=== PATIENT | female | born 1930 | race Caucasian/White ===

== ENCOUNTER 2016-12-17 21:29 | Inpatient (IN) | payer MEDICARE ==
--- NOTE | ~2016-12-17 | EKG ---
PATIENT: ALVIN SAWYER UNIT #: [id number] Ventricular Rate: 98 BPM Atrial Rate: 98 BPM P-R Interval: 174 ms QRS Duration: 90 ms Q-T Interval: 352 ms QTC Calculation(Bezet): 449 ms P Acme: 61 degrees Calculated R Acme: 40 degrees Calculated T Acme: -19 degrees Diagnosis Line: Normal sinus rhythm Diagnosis Line: Inferior infarct (cited on or before 17-DEC-2016) Diagnosis Line: Abnormal ECG Baseline wander Nonspecific ST Diagnosis Line: abnormality Diagnosis Line: When compared with ECG of 17-DEC-2016 21:10, Diagnosis Line: (unconfirmed) Diagnosis Line: No significant change was found Diagnosis Line: Confirmed by GENARO PETERS MD ([id number]) on 12/21/2016 Diagnosis Line: 10:41:56 PM INTERPRETING MD: FRAN BECKFORD
--- NOTE | ~2016-12-17 | HP ---
Unit #: [id number] #: [id number] Patient: ALVIN SAWYER [id number] [address] [place], [place] [address] [id number] I MR#: [id number] NAME: ALVIN SAWYER ROOM: [facility] Age: 86 Sex: F Admission Date: 12/17/2016 : 1930 Attending Physician: Judi Poe M.D. Primary Care Physician: No Primary Care Physician HISTORY AND PHYSICAL CHIEF COMPLAINT Back pain, hyponatremia. HISTORY This 86-year-old female with history of GERD was brought in by EMS. Apparently, patient lives in some sort of dwelling. I am told it is a trailer, but the patient makes mention that lives with her daughter's friend. Neighbors became concerned and called EMS. EMS found the patient in her dwelling, which was filthy with feces. She was brought to this emergency department where she is a fairly poor historian. She tells me that she was living with her daughter who now is in correction and that she is living with her daughter's friend, but cannot go back to that situation and is unable to live on her own. She has chronic shortness of breath and chronic back pain with CT scan findings consistent with old compression fractures. I asked her what changed today and she tells me she called EMS as she was unable to get out of bed. She does seem to be a bit confused. In the course of her evaluation, she has a sodium of 127. CT scans were performed suspicious for 1.4 cm left inner upper breast mass, which I can palpate on exam. In the ER, she was given Tylenol and a liter of saline. Unfortunately, no family or friends are present. PAST MEDICAL HISTORY 1. GERD. 2. ORIF left ankle fracture. 3. Varicose vein stripping. ALLERGIES None. HOME MEDICATIONS Rolaids, which apparently are not helpful. Patient tells me she was on a little purple pill, which helped much better. FAMILY HISTORY Noncontributory given patient's age. SOCIAL HISTORY The patient is a lifelong nonsmoker and does not drink alcohol. I am confused whether she lives in a trailer with a friend or a friend's home. Her daughter, patient states that her daughter just got out of correction recently and is in a [place]. Patient states that she is not able to live on her own. REVIEW OF SYSTEMS Unit #: [id number] #: [id number] Patient: ALVIN SAWYER Impossible to obtain as patient herself is a poor historian. PHYSICAL EXAMINATION GENERAL APPEARANCE: Pleasant, 86-year-old female. Tends to become quite tangential. VITAL SIGNS: Temperature 98.1, pulse 109, respirations 18, blood pressure 187/93, and O2 saturation 100% on room air. HEENT: Eyes: PERRLA. Extraocular muscles are intact. Pharynx: Benign. NECK: Supple without adenopathy or thyromegaly. CHEST: Clear. CARDIAC: Normal S1 and S2 without murmur. BREASTS: I can palpate a mass in the left upper inner breast. ABDOMEN: Bowels sounds are present. No hepatosplenomegaly, tenderness, or masses. EXTREMITIES: Without C, C, or E. Pedal pulses are present. NEUROLOGIC: Patient is awake and alert, but she is only oriented to person. Her cranial nerves are intact. She has equal strength throughout. DIAGNOSTIC STUDIES LABORATORY: Admission labs: Hematocrit 34.7 and normal white count, platelet count, and MCV. D-dimer elevated. SMA-12: Sodium 127, glucose 124, and chloride is 93. Cardiac markers are negative. IMAGING: CTA of the chest negative for PE. Chronic compression fractures noted. Possible left breast nodule, 1.4 cm, noted. Gallstones. Aortic ectasia. Atherosclerotic calcifications, COPD, and bronchiectasis. CARDIOVASCULAR: EKG: Normal sinus rhythm. Rate 99 with Q noted III and aVF. ASSESSMENT 1. Patient is unable to go back to her usual living situation. I am told when EMS arrived, there was feces and the living situation was quite filthy. 2. Likely mild dementia. 3. Hyponatremia. 4. Chronic back pain with multiple old compression fractures. 5. Left breast mass on CT scan and on exam. 6. Elevated blood pressure. PLANS 1. IV saline, check thyroid function test, and check B12 level and urine sodium. 2. Social work and physical therapy to see. 3. Ultrasound of the left breast and biopsy if mass is present. 4. Blood pressure control. 5. Obtain old records. 6. Will write for a proton pump inhibitor. Dictated by Judi Poe M.D. JES/pc TD: 12/18/2016 05:00 JOB #: [id number] Unit #: [id number] #: [id number] Patient: SILVERIOALVIN HISTORY AND PHYSICAL Page 1 of 1 X Judi Poe MD X HISTORY AND PHYSICAL
--- NOTE | ~2016-12-17 | DS ---
Unit #: [id number] #: [id number] Patient: ALVIN SAWYER [id number] [address] [address] [id number] I MR#: [id number] NAME: ALVIN SAWYER ROOM: 227 Age: 86 Sex: F Admission Date: 12/17/2016 : 1930 Discharge Date: 12/21/2016 Attending Physician: Ирина Love M.D. DISCHARGE SUMMARY PRIMARY CARE PROVIDER None. PRINCIPAL DIAGNOSES 1. Hyponatremia secondary to syndrome of inappropriate antidiuretic hormone secretion. 2. 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 3. Hypertensive urgency. 4. Severe vitamin B12 deficiency with a vitamin B12 level of 185. 5. 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 6. Osteoporosis. 7. Hard of hearing. 8. Mild deconditioning. 9. Gastroesophageal reflux disease. 10. Chronic obstructive pulmonary disease. CONSULTANTS Dr. Sexton, Oncology. PROCEDURES 1. Chest x-ray on 12/17/2016 with calcified granuloma in the right apex of the lung. 2. CT angiogram of the chest on 12/17/2016, which was negative for pulmonary embolism. Ectatic ascending aorta and distal aortic arch measuring 3.5 cm. Atherosclerotic calcifications noted. Emphysema and bronchiectasis noted. 1.4 cm nodule in the upper inner quadrant of left breast. Chronic appearing compression deformities at T8 and T12. CLINICAL HISTORY AND HOSPITAL COURSE Ms. Ruiz is an 86-year-old female, who presents to the emergency department for complaints of back pain. In the emergency department, she was found to be hyponatremic with a sodium level of 127. She was also complaining of shortness of breath and underwent chest x-ray and CT angiogram of the chest. CT angiogram of the chest revealed a 1.4 cm mass of the left breast. For the above reasons, the patient was subsequently admitted. Regards the patient's hyponatremia, she was placed on IV fluids. Sodium throughout the week has remained stable at approximately 129. 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 Regards to the patient's breast mass, Dr. Sexton was consulted. Unit #: [id number] #: [id number] Patient: ALVIN SAWYER Unfortunately, the patient is unable to have mammogram and biopsy as an inpatient and she will follow up with Dr. Sexton as an outpatient for further evaluation of this breast mass, is a real possibility this is underlying malignancy. Upon presentation, the patient was also found to have an elevated blood pressure into the 170s/90s. She has been placed on Norvasc and blood pressures remained stable. The patient also has underlying memory loss. Vitamin B12 level was done and found to be significantly low. She received intramuscular injections while hospitalized and will be discharged home on pills and this will need to be followed up within the next 3 months. She may require intermittent monthly injections in her primary care physician's office. They are concerned about the patient being unable to care for herself. This was discussed with the patient's grandson, Mauro and the plan is for the patient to be discharged back to her friend's house and will ultimately live with her daughter and her grandson. DISCHARGE CONDITION Stable. DISCHARGE STATUS Discharged to home. DISCHARGE MEDICATIONS Tramadol 50 mg one p.o. q.6 hours p.r.n. for pain; Norvasc 10 mg daily; Prilosec 20 mg daily; vitamin B12 1000 mcg p.o. daily, this can be purchased over the counter. DISCHARGE INSTRUCTIONS The patient was instructed to follow a regular diet, thus she should maintain a 1500 mL fluid restriction. She can increase her activity as tolerated under of care of physical and occupational therapy via home health. DISCHARGE FOLLOWUP The patient will follow up with Dr. Sexton in 2 weeks. Needs outpatient mammogram, ultrasound, and biopsy of this mass. She will follow up with her primary care provider in approximately 2 weeks. Can recheck sodium level at that time 129 is acceptable. Dictated by... Ирина Love M.D. SEEMA/felicia TD: 12/22/2016 01:12 JOB #: [id number] Unit #: [id number] #: [id number] Patient: ALVIN SAWYER DISCHARGE SUMMARY Page 1 of 1 X Ирина Love MD X DISCHARGE SUMMARY
--- NOTE | ~2016-12-17 | CR72 ---
[facility] A Service of [facility] & [facility] RADIOLOGY TEXT RESULTS PATIENT: ALVIN SAWYER LOCATION: B 450-01 : [birth year] UNIT #: [id number] AGE: [address]: Ирина Love MD SEX: F ORDER DR: [id number] [facility] [address]. [place], [place] [address] [id number] I MR#: [id number] Acc #: [id number] NAME: ALVIN SAWYER : 1930 SEX: F STUDY DATE/TIME: 12/17/2016 21:07 UNIT: [facility] ROOM: [facility] STUDY DESCRIPTION: CR Chest Single View Portable Attending Physician: Judi Poe M.D. Ordering Physician: Atul Woodson M.D. Primary Care Physician: Primary Care Physician No MEDICAL IMAGING REPORT This report is preliminary unless electronic signature is present EXAM Portable chest x-ray 12/17/2016 HISTORY Short of air. Chest pain, dry cough began yesterday. FINDINGS AP radiograph of the chest is presented. No comparison chest radiographs. No acute-appearing bony abnormality. Degenerative changes in the bilateral shoulders and spine. Heart upper limits of normal in size. The lungs appear slightly hyperinflated which may be a reflection of underlying chronic airway disease. Calcified granuloma right apex. Right lung otherwise clear. Linear/band-like scarring or atelectasis left lung base. Calcified granuloma left lung base medially. Left lung otherwise clear. No pleural effusion or pneumothorax. Dictated by... Abhay Mccullough M.D. THIS IS AN ELECTRONICALLY VERIFIED REPORT Abhay Mccullough M.D. at 12/18/2016 8:05 PM GABRIEL/chepe TD: 12/18/2016 06:15 JOB #: [id number] MEDICAL IMAGING REPORT Page 1 of 1 COPY
--- NOTE | ~2016-12-17 | CT16 ---
[facility] A Service of [facility] & [facility] RADIOLOGY TEXT RESULTS PATIENT: ALVIN SAWYER LOCATION: C4B 450-01 : [birth year] UNIT #: [id number] AGE: [address]: Ирина Love MD SEX: F ORDER DR: [id number] [facility] [address] [place], [place] [address] [id number] I MR#: [id number] Acc #: [id number] NAME: ALVIN SAWYER : 1930 SEX: F STUDY DATE/TIME: 12/17/2016 21:45 UNIT: C4 ROOM: [facility] STUDY DESCRIPTION: CT Angio Chest for PE Attending Physician: Judi Poe M.D. Ordering Physician: Atul Woodson M.D. Primary Care Physician: Primary Care Physician No MEDICAL IMAGING REPORT This report is preliminary unless electronic signature is present EXAM CT angiography chest for PE HISTORY Upper back pain started this a.m. Short of air for 2 years. Dyspnea. Varicose veins. D-dimer 875. TECHNIQUE This CT examination was performed with one or more of the following radiation dose reduction techniques: automatic exposure control, adjustment of mA and/or kV according to patient size, and iterative reconstruction. FINDINGS CT pulmonary angiography performed with intravenous administration 80 mL Isovue-370. Three-dimensional reconstructions performed through pulmonary arteries. No prior CTs for comparison. Visualized thyroid unremarkable. No axillary adenopathy. No mediastinal or hilar adenopathy. Mild cardiac enlargement. Questionable 1.4 cm nodule medial left breast. This is a questionable finding and could simply be a reflection of asymmetric normal breast tissue. This is in the upper inner quadrant of the left breast. Correlation with mammography and clinical examination recommended. CT is not the accepted screening modality for evaluation of the breasts. No pleural effusions. The visualized liver is unremarkable. Partial visualization of gallbladder shows at least 1 nonobstructing gallstone. No biliary ductal dilatation. The spleen, pancreas, adrenal glands are unremarkable. Upper renal poles notable for focal areas of parenchymal thinning in the upper pole of the right kidney likely reflecting remote infection or vascular insult. Visualized kidneys show no acute appearing abnormality. There is no upper abdominal adenopathy. Small hiatal hernia. Remainder of visualized stomach, small bowel and colon unremarkable. [facility] A Service of [facility] RADIOLOGY TEXT RESULTS PATIENT: ALVIN SAWYER LOCATION: B 450-01 : [birth year] UNIT #: [id number] AGE: [address]: Ирина Love MD SEX: F ORDER DR: Pulmonary parenchyma shows underlying emphysema. Mild bronchiectasis without mucous plugging. No suspicious nodule. No indication of acute infectious or inflammatory disease. Linear atelectasis or scarring at the left lung base adjacent to diaphragm. Bony structures show severe compression deformity at the L1 vertebral body level. The appearance favors chronic time course. No paraspinal hematoma. There is smoothly contoured retropulsion of posterior cortex. There is mild central spinal canal narrowing. The spinal cord is not well visualized. Its termination is unclear. I cannot exclude possible anterior cord contact at this level. There is mild chronic-appearing compression deformity L2. There is moderate chronic-appearing compression deformity T8 vertebral body without posterior cortex retropulsion and no spinal canal narrowing. Multilevel intervertebral disc space narrowing. Degenerative changes in the bilateral shoulders, left greater than right. Levoscoliosis lower thoracic spine. No acute appearing fracture. No aggressive bony lesion. Pulmonary arteries well opacified. No PE. Ectatic ascending aorta measuring about 3.5 cm in diameter. The distal aortic arch is ectatic measuring about 3.5 cm in diameter. No dar aneurysm. The visualized aortic branch vessels appear patent. Scattered atherosclerotic arterial calcifications. IMPRESSION 1. No PE. 2. No dar aneurysmal dilatation of the aorta. Ectatic ascending aorta and distal aortic arch measuring up to about 3.5 cm in diameter. No dissection. Visualized branch vessels are patent. Scattered atherosclerotic arterial calcifications. 3. Emphysema. Bronchiectasis. No mucous plugging. There is no evidence of acute infectious or inflammatory disease. No pleural effusion, pneumothorax or suspicious nodule. Linear scarring or atelectasis at the extreme left lung base adjacent to diaphragm. 4. Mild cardiac enlargement. 5. Questionable 1.4 cm nodule upper inner quadrant left breast. See discussion above. Correlation with physical examination and mammography recommended. 6. Uncomplicated incompletely visualized cholelithiasis. 7. Focal areas of cortical thinning upper pole right kidney likely reflecting prior vascular insult or prior episodes of infection. 8. No acute-appearing bony abnormality is seen. Mild to moderate chronic-appearing compression deformities at T8 and L2 vertebral bodies. Marked chronic compression deformity, chronic in appearance, at L1. There is posterior cortex chronic-appearing retropulsion at the L1 level causing mild central spinal canal narrowing. Relationship to the spinal cord unclear. No aggressive-appearing bony abnormality. Dictated by... Abhay Mccullough M.D. [facility] A Service of [facility] RADIOLOGY TEXT RESULTS PATIENT: ALVIN SAWYER LOCATION: [place] [address] : [birth year] UNIT #: [id number] AGE: [address]: Ирина Love MD SEX: F ORDER DR: THIS IS AN ELECTRONICALLY VERIFIED REPORT Abhay Mccullough M.D. at 12/18/2016 8:05 PM GABRIEL/chepe TD: 12/18/2016 06:47 JOB #: [id number] MEDICAL IMAGING REPORT Page 1 of 1 COPY
--- NOTE | ~2016-12-17 | CO ---
Unit #: [id number] #: [id number] Patient: ALVIN SAWYER [id number] [address] [place], [place] [address] [id number] I MR#: [id number] NAME: ALVIN SAWYER ROOM: [facility] Age: 86 Sex: F Admission Date: 12/17/2016 : 1930 Attending Physician: Ирина Love M.D. Primary Care Physician: Primary Care Physician No Consultation Date: 12/18/2016 CONSULTATION REPORT REASON FOR EVALUATION Left-sided breast mass, please evaluate. HISTORY OF PRESENT ILLNESS This 86-year-old lady who is very pleasantly confused and is unable to give much of history, so majority of this was obtained from the chart but she stated that her daughter is in [facility] and she lives with a daughter's friend. It appears that is correct. She was brought in and CT scan of the chest showed a possible 1.4 cm left breast inner quadrant lesion. We are requested to evaluate. On questioning her, she states she does not know if she ever had any cancer, is not taking any cancer medicines, in fact she has very, very few complaints. Her history is not reliable. She states that she has no known allergies and she takes an anti-acid medicine but she does not remember the name. REVIEW OF SYSTEMS Obtained but not reliable. She states that she is feeling fine. Periodic back ache, appetite is fair, lives with a friend, daughter in [facility]. No headache, no cough, no urinary symptoms but she does have loose stools periodically and she states that she has hemorrhoids. PHYSICAL EXAMINATION GENERAL: Looks stated age. LUNGS: Clear. BREAST: Questionable area left breast, possible mass, diffuse, not very palpable. ABDOMEN: Scaphoid. No organomegaly. PELVIC: Not performed. EXTREMITIES: Moderate arthritis in both hands. DIAGNOSTIC STUDIES LABORATORY: Glucose 87, BUN 11, creatinine 0.5, sodium 128, potassium 4.3, chloride 101, CO2 of 19, calcium 8.3, total protein 7.5, albumin 3.8. Hemoglobin 10.8, hematocrit 33.3, white count 7300, platelets 240,000. IMAGING: CT angio of the chest showed no evidence of pulmonary emboli but it did show a 1.4 cm nodule upper inner quadrant of the left breast; otherwise, no evidence of metastatic disease. DISCUSSION/PLAN So at this point, as the patient is being discharged and as Medicare rules do not allow mammogram, ultrasound, biopsy in the hospital, I am going to arrange for her to come see us in the office in a couple of weeks after Unit #: [id number] #: [id number] Patient: ALVIN SAWYER all her current problems are resolved. We will see her in the office, order the mammogram, ultrasound and biopsy of the left breast mass and, depending on the findings, proceed further. Dictated by... Kiet [place]/james TD: 12/18/2016 15:20 JOB #: [id number] CONSULTATION REPORT Page 1 of 1 X Ray Veliz MD X CONSULTATION REPORT
[2016-12-17 20:34] LABS: POC - TROPONIN <0.05 ng/mL (<=0.05)
[2016-12-17 20:56] LABS: BASOPHIL# 0.1 X10e3 (0-0.3); BASOPHIL% 0.8 % (0-2.5); EOSINOPHIL# 0.1 X10e3 (0-0.7); EOSINOPHIL% 0.9 % (0.0-7.0); HEMATOCRIT 34.7 % (35.0-45.0); HEMOGLOBIN 11.2 gm/dL (12.0-16.0); LYMPHOCYTE# 1.8 X10e3 (1.0-3.5); LYMPHOCYTE% 21.4 % (17.0-45.0); MEAN CELL VOLUME 86.1 FL (83-96); MEAN CORPUSCULAR HEMOGLOBIN 27.9 PG (28-34); MEAN CORPUSCULAR HGB CONC 32.3 g/dL (30-36); MEAN PLATELET VOLUME 7.9 FL (6.5-11.5); MONOCYTE# 0.8 X10e3 (0-1.0); MONOCYTE% 9.8 % (3.0-12.0); NEUTROPHIL# 5.8 X10e3 (1.5-7.1); NEUTROPHIL% 67.1 % (40-75); PLATELET COUNT 250 X10e3 (140-420); RED BLOOD COUNT 4.03 X10e (3.90-5.30); RED CELL DISTRIBUTION WIDTH 13.8 % (11.0-15.5); WHITE BLOOD COUNT 8.6 X10e3 (4.0-10.5)
[2016-12-17 21:05] LABS: DIFF IND NO
[2016-12-17 21:14] LABS: ALBUMIN SERUM 3.8 g/dL (3.5-5.0); BILIRUBIN, DIRECT 0.1 mg/dL (0.0-0.2); BILIRUBIN,INDIRECT 0.2 mg/dL (0.0-0.9); BILIRUBIN,TOTAL 0.3 mg/dL (0.2-2.0); BUN/CREATININE RATIO 28.57; CALCIUM SERUM 9.2 mg/dL (8.4-10.2); CREATININE SERUM 0.7 mg/dL (0.6-1.4); POTASSIUM 4.2 mmol/L (3.5-5.1); PROTEIN TOTAL SERUM 7.5 g/dL (6.0-8.3)
[2016-12-18] MEDS ORDERED: PRILOSEC PO (02:34)
[2016-12-18 12:40] LABS: URINE SOURCE CLEAN CATCH
[2016-12-18 12:47] LABS: URINE APPEARANCE CLEAR; URINE BILIRUBIN NEG (NEG); URINE BLOOD NEG (NEG); URINE COLOR YELLOW; URINE GLUCOSE NEG (NEG); URINE KETONE NEG (NEG); URINE LEUKOCYTE ESTERASE NEG (NEG); URINE NITRATE NEG (NEG); URINE PROTEIN NEG (NEG); URINE UROBILINOGEN 0.2 MG/DL (NEG)
[2016-12-18 14:01] LABS: BASOPHIL% 0.7 % (0-2.5); EOSINOPHIL# 0.1 X10e3 (0-0.7); EOSINOPHIL% 0.7 % (0.0-7.0); HEMATOCRIT 33.3 % (35.0-45.0); HEMOGLOBIN 10.8 gm/dL (12.0-16.0); LYMPHOCYTE# 1.4 X10e3 (1.0-3.5); LYMPHOCYTE% 19.3 % (17.0-45.0); MEAN CELL VOLUME 86.5 FL (83-96); MEAN CORPUSCULAR HGB CONC 32.4 g/dL (30-36); MEAN PLATELET VOLUME 8.2 FL (6.5-11.5); MONOCYTE# 0.6 X10e3 (0-1.0); MONOCYTE% 8.9 % (3.0-12.0); NEUTROPHIL# 5.2 X10e3 (1.5-7.1); NEUTROPHIL% 70.4 % (40-75); PLATELET COUNT 240 X10e3 (140-420); RED BLOOD COUNT 3.86 X10e (3.90-5.30); RED CELL DISTRIBUTION WIDTH 14.5 % (11.0-15.5); WHITE BLOOD COUNT 7.3 X10e3 (4.0-10.5)
[2016-12-18 14:04] LABS: DIFF IND NO
[2016-12-18 14:23] LABS: CALCIUM SERUM 8.3 mg/dL (8.4-10.2); CREATININE SERUM 0.5 mg/dL (0.6-1.4); GLOM FILT RATE Estimated 88.3 mL/min (>60); POTASSIUM 4.3 mmol/L (3.5-5.1)
[2016-12-18 14:25] LABS: THYROID STIMULATING HORMONE 1.28 uIU/ml (0.34-5.60)
[2016-12-18 14:32] LABS: FREE THYROXIN (T4) 0.97 ng/dL (0.58-1.64)
[2016-12-19 03:29] LABS: HEMATOCRIT 33.3 % (35.0-45.0); HEMOGLOBIN 10.9 gm/dL (12.0-16.0); MEAN CELL VOLUME 86.5 FL (83-96); MEAN CORPUSCULAR HEMOGLOBIN 28.2 PG (28-34); MEAN CORPUSCULAR HGB CONC 32.6 g/dL (30-36); RED BLOOD COUNT 3.85 X10e (3.90-5.30); RED CELL DISTRIBUTION WIDTH 14.2 % (11.0-15.5); WHITE BLOOD COUNT 7.7 X10e3 (4.0-10.5)
[2016-12-19 04:01] LABS: BUN/CREATININE RATIO 16.66; CALCIUM SERUM 8.5 mg/dL (8.4-10.2); CREATININE SERUM 0.6 mg/dL (0.6-1.4); GLOM FILT RATE Estimated 83.1 mL/min (>60); MAGNESIUM 1.7 mg/dL (1.6-3.0); POTASSIUM 3.8 mmol/L (3.5-5.1)
[2016-12-20 02:28] LABS: BASOPHIL% 0.4 % (0-2.5); EOSINOPHIL# 0.1 X10e3 (0-0.7); HEMATOCRIT 31.1 % (35.0-45.0); HEMOGLOBIN 10.2 gm/dL (12.0-16.0); LYMPHOCYTE# 1.3 X10e3 (1.0-3.5); LYMPHOCYTE% 12.7 % (17.0-45.0); MEAN CELL VOLUME 86.3 FL (83-96); MEAN CORPUSCULAR HEMOGLOBIN 28.3 PG (28-34); MEAN CORPUSCULAR HGB CONC 32.8 g/dL (30-36); MEAN PLATELET VOLUME 7.9 FL (6.5-11.5); MONOCYTE# 0.9 X10e3 (0-1.0); MONOCYTE% 8.3 % (3.0-12.0); NEUTROPHIL% 77.6 % (40-75); PLATELET COUNT 222 X10e3 (140-420); RED BLOOD COUNT 3.61 X10e (3.90-5.30); RED CELL DISTRIBUTION WIDTH 13.9 % (11.0-15.5); WHITE BLOOD COUNT 10.3 X10e3 (4.0-10.5)
[2016-12-20 02:30] LABS: DIFF IND NO
[2016-12-20 02:51] LABS: ALBUMIN SERUM 3.1 g/dL (3.5-5.0); BILIRUBIN,TOTAL 0.6 mg/dL (0.2-2.0); CALCIUM SERUM 8.2 mg/dL (8.4-10.2); CREATININE SERUM 0.5 mg/dL (0.6-1.4); GLOM FILT RATE Estimated 88.3 mL/min (>60); POTASSIUM 3.5 mmol/L (3.5-5.1); PROTEIN TOTAL SERUM 6.8 g/dL (6.0-8.3)
[2016-12-20 18:40] LABS: OSMOLALITY,URINE 380 mOsmo/kg (250-900); SODIUM URINE RANDOM 92 mmol/L
[2016-12-21 04:13] LABS: CREATININE SERUM 0.5 mg/dL (0.6-1.4); GLOM FILT RATE Estimated 88.3 mL/min (>60); MAGNESIUM 1.8 mg/dL (1.6-3.0); POTASSIUM 3.7 mmol/L (3.5-5.1)
[2016-12-21] MEDS ORDERED: NORVASC10 MG PO (11:16)
[2016-12-21] MEDS ORDERED: TRAMADOL HCL50 M1 PO (11:17)
[2016-12-21] MEDS ORDERED: B-121000 MC1 PO (11:17)
== END 2016-12-21 18:23 | disposition home health service (06) | DRG 641 ==
LOC: CED 21:29 → CEDOF 23:15 → C4B 12-18 01:48 → C2A 12-21 10:13
PROVIDERS: Emergency Medicine; Internal Medicine
DX: E87.1 Hypo-osmolality and hyponatremia (principal); J84.10 Pulmonary fibrosis, unspecified; F03.90 Unspecified dementia, unspecified severity, without behavioral disturbance, psychotic disturbance, mood disturbance, and anxiety; J44.9 Chronic obstructive pulmonary disease, unspecified; C50.912 Malignant neoplasm of unspecified site of left female breast; I16.0 Hypertensive urgency; E53.8 Deficiency of other specified B group vitamins; M81.0 Age-related osteoporosis without current pathological fracture; H91.90 Unspecified hearing loss, unspecified ear; K21.9 Gastro-esophageal reflux disease without esophagitis; M19.042 Primary osteoarthritis, left hand; M19.041 Primary osteoarthritis, right hand; M54.9 Dorsalgia, unspecified; I10 Essential (primary) hypertension
CPT/HCPCS: 36415; 71010; 71275; 80048; 80053; 80076; 81003; 82553; 82607; 83735; 83930; 83935; 84300; 84439; 84443; 84484; 85025; 85027; 85379; 85652; 86140; 93005; 96360; 97110; 97116; 97163; 97530; 99285; G8978-GP; G8979-GP; G8980-GP; J3420; Q9967